=== PATIENT | male | born 1990 | race Caucasian/White ===

== ENCOUNTER 2018-08-01 09:00 | Emergency (ER) | payer MEDICAID ==
[2018-08-01] MEDS: ONDANSETRON (ODT) 4 MG TAB ODT (10:02)
[2018-08-01] MEDS: LORAZEPAM 1 MG TAB PO (10:02)
== END 2018-08-01 10:28 | disposition home or self-care (01) ==
LOC: FTE 09:00
DX: F41.9 Anxiety disorder, unspecified (principal)
CPT/HCPCS: 99283; Z7502